=== PATIENT | female | born 1975 | race Caucasian/White ===

== ENCOUNTER 2024-06-11 09:45 | Emergency (ER) | payer OTHER, SELFPAY ==
[2024-06-11 09:53] VITALS: BP 123/73; PULSE 61; RESP 16; TEMP 36.8; O2SAT 100
--- NOTE | 2024-06-11 10:15 | ED.GENADULT ---
HPI - General Adult General Chief complaint: Dizziness Stated complaint: Dizziness/ears Source: patient Mode of arrival: ambulatory Limitations: no limitations History of Present Illness HPI narrative: Pt presents for evaluation of dizziness since last week. [place] and her symptoms started after the flight out of town. She states she has some problems with equilibrium and her ears popping after flying. She states that her symptoms primarily occur when she moves her head. She has some sinus congestion at the present time. She denies any chest pain, shortness of breath, palpitations, motor or sensory deficits. She reports high stress levels secondary to health problems of someone with whom she is quite close. She does use a non-nicotine vape product and also uses marijuana. Related Data Home Medications Medication Instructions Recorded Confirmed semaglutide (weight loss) 0.25 0.5 mg subcut WEEKLY 06/11/24 06/11/24 mg/0.5 mL subcutaneous pen injector (Wegovy) Allergies Allergy/AdvReac Type Severity Reaction Status Date / Time No Known Allergies Allergy Verified 06/11/24 09:57 Review of Systems Review of Systems: CONSTITUTIONAL: Denies fever, chills, or sweats. EYES: Denies visual changes, redness, or discharge. ENT: Reports sinus congestion. Denies rhinorrhea, sore throat, or otalgia. CARDIOVASCULAR: Denies chest pain, palpitations, or edema. RESPIRATORY: Denies cough or dyspnea. GASTROINTESTINAL: Denies abdominal pain, nausea, vomiting, or diarrhea. GENITOURINARY: Denies dysuria or hematuria. SKIN: Denies rash or itching. MUSCULOSKELETAL: Denies back pain, joint pain, or myalgia. NEUROLOGIC: Reports dizziness when turning her head. Denies headache, numbness, or weakness. PSYCHIATRIC: Denies anxiety or depression. [facility] Past Medical History Medical History No pertinent past medical history Surgical History Surgical History History of Family History Family History Mother Family history non-contributory Social History Social History Smoking status: Current every day smoker Tobacco type: e-cigarettes/vaping Substance use: current Substance use type: marijuana Living arrangements: with family Gender identity (if verbalized by the patient): Female Spiritual care concerns: No Exam Narrative: GENERAL: Well-appearing, well-nourished, and in no acute distress. HEAD: Normocephalic, atraumatic. EYES: PERRLA and EOMI. ENT: Nares clear, no rhinorrhea or epistaxis. Mucous membranes moist. Oropharynx without tonsillar hypertrophy exudate or other lesions. There is serous fluid behind the tympanic membranes bilaterally NECK: Supple. No adenopathy or masses. No carotid bruits or JVD CHEST: Clear to auscultation. No respiratory distress. No wheezes rales or rhonchi HEART: Regular rate and rhythm. No murmur heard. Normal peripheral pulses. ABDOMEN: Soft, nontender, nondistended, normal active bowel sounds. EXTREMITIES: Normal range of motion. No edema. SKIN: Warm, dry, no rash. NEURO: Normal [id number] exam. Able to perform rapid alternating movements without difficulty. No focal deficits. Alert and oriented x3. PSYCH: Normal mood and affect. Course Course Emergency Course: This is a 48-year-old female who presented for evaluation of dizziness, particularly with movement of her head. Did offer to send her to the emergency department. She declined. I think this is reasonable. She has no neuro deficits to suggest CVA and also has little in the way of risk factors. This could be vertigo versus eustachian tube dysfunction. Will discharge with Augmentin. Start Flonase and Sudafed [id number]. Meclizine for symptom control. Follow-up with primary provider. If symptoms worsen or persist she should go immediately to the ER. Patient in agreement with plan of care. Level of Care: Express Care Visit Vital Signs Vital signs: Vital Signs Temperature 36.8 C 06/11/24 09:53 Pulse Rate 61 06/11/24 09:53 Respiratory Rate 16 06/11/24 09:53 Blood Pressure 123/73 06/11/24 09:53 Pulse Oximetry 100 06/11/24 09:53 Oxygen Delivery Room Air 06/11/24 09:53 Temperature 36.8 C 06/11/24 09:53 Pulse Rate 61 06/11/24 09:53 Respiratory Rate 16 06/11/24 09:53 Blood Pressure 123/73 06/11/24 09:53 Pulse Oximetry 100 06/11/24 09:53 Oxygen Delivery Room Air 06/11/24 09:53 Medical Decision Making Vital Signs Vital Signs: Vital Signs Temperature 36.8 C 06/11/24 09:53 Pulse Rate 61 06/11/24 09:53 Respiratory Rate 16 06/11/24 09:53 Blood Pressure 123/73 06/11/24 09:53 Pulse Oximetry 100 06/11/24 09:53 Oxygen Delivery Room Air 06/11/24 09:53 Temperature 36.8 C 06/11/24 09:53 Pulse Rate 61 06/11/24 09:53 Respiratory Rate 16 06/11/24 09:53 Blood Pressure 123/73 06/11/24 09:53 Pulse Oximetry 100 06/11/24 09:53 Oxygen Delivery Room Air 06/11/24 09:53 Discharge Plan Discharge Clinical Impression: Dizziness Patient Disposition: Home, Self-Care Condition: Stable Instructions: Antibiotic Form, Dizziness (ED) Additional Instructions: YOU MAY TAKE FLONASE AND SUDAFED FOR YOUR SYMPTOMS IF YOUR SYMPTOMS PERSIST, PLEASE GO TO THE EMERGENCY DEPARTMENT Patient Language: Turkmen Prescriptions: New amoxicillin-pot clavulanate 875-125 mg tablet 1 tablet PO Q12H Qty: 20 0RF meclizine 25 mg tablet 25 mg PO QID PRN (Reason: dizziness) Qty: 30 0RF No Action Wegovy 0.25 mg/0.5 mL pen injector 0.5 mg SUBCUT WEEKLY Follow-up/Referrals: Avery Joshua [Other] Time of Disposition: 10:13
== END 2024-06-11 10:18 | disposition home or self-care (01) ==
PROVIDERS: Emergency Provider Nurse Practitioner
DX: R42 Dizziness and giddiness (principal); F17.290 Nicotine dependence, other tobacco product, uncomplicated; F12.90 Cannabis use, unspecified, uncomplicated
CPT/HCPCS: 99213; G0463